=== PATIENT | female | born 1985 | race Caucasian/White ===

== ENCOUNTER → 2016-10-12 | Outpatient (CLI) | payer OTHER | LOC: KOH-I 15:23 | DX: M25.562 Pain in left knee (principal) | CPT/HCPCS: 73562 ==

== ENCOUNTER → 2017-01-18 | Outpatient (CLI) | payer OTHER | LOC: LAB 12:12 | DX: J30.89 Other allergic rhinitis (principal); B89 Unspecified parasitic disease | CPT/HCPCS: 36415; 82306; 82784; 82785 ==

== ENCOUNTER 2020-10-21 14:53 | Emergency (ER) | payer OTHER ==
[2020-10-21 15:28] LABS: HEMOGLOBIN 16.2 gm/dl (12.3-15.3); RED BLOOD COUNT 5.03 M/UL (4.00-5.10); WHITE BLOOD COUNT 11.7 K/UL (4.5-11.0)
== END 2020-10-21 16:38 | disposition home or self-care (01) ==
LOC: ER1 14:53
PROVIDERS: Preventive Medicine Occupational Medicine
DX: R41.0 Disorientation, unspecified (principal); R21 Rash and other nonspecific skin eruption; T38.0X5A Adverse effect of glucocorticoids and synthetic analogues, initial encounter
CPT/HCPCS: 70450; 70486; 71045; 80053; 81001; 85025; 86140; 87086; 93005; 99284

== ENCOUNTER 2020-12-29 13:38 | Emergency (ER) | payer OTHER ==
[2020-12-29] MEDS ORDERED: AUGMENTIN 875-1 EACH PO (14:27)
== END 2020-12-29 14:46 | disposition home or self-care (01) ==
LOC: ER1 13:38
DX: J32.9 Chronic sinusitis, unspecified (principal); Z88.1 Allergy status to other antibiotic agents; Z20.822 Contact with and (suspected) exposure to COVID-19
CPT/HCPCS: 96372; 99283; J1885; U0002

== ENCOUNTER → 2021-10-21 | Outpatient (CLI) | payer OTHER ==
[~2021-10-21] MED LIST: AUGMENTIN 875-1 EACH PO
== END ==
LOC: KOH-I 13:34
DX: M25.562 Pain in left knee (principal)
CPT/HCPCS: 73564